=== PATIENT | female | born 1995 | race Caucasian/White ===

== ENCOUNTER 2022-05-02 08:30 | Emergency (ER) | payer BC ==
[~2022-05-02] VITALS: Ht 157.5 cm; Wt 59.0 kg
[2022-05-02] MEDS ORDERED: OSEL75CA PO (12:07)
== END 2022-05-02 12:59 | disposition home or self-care (01) ==
LOC: ER 08:30
DX: J10.1 Influenza due to other identified influenza virus with other respiratory manifestations (principal)